=== PATIENT | male | born 1980 | race Two or more races ===

== ENCOUNTER 2022-03-13 12:04 | Emergency (ER) | payer BC, OTHER ==
[~2022-03-13] VITALS: Ht 167.6 cm; Wt 78.0 kg
[2022-03-13 13:04] LABS: Basophils # (auto) 0 10 ^3/uL (0-0.2); Eosinophils # (auto) 0.2 10 ^3/uL (0-0.8)
[2022-03-13 13:06] LABS: Basophils % (auto) 0.4 % (0.0-2.0); Eosinophils % (auto) 2.5 % (0.0-7.0); Hematocrit 52.7 % (41.0-53.0); Lymphocytes % (auto) 28.5 % (10.0-50.0); Mean Corpuscular Hemoglobin 31.7 pg (28.0-32.0); Mean Corpuscular Hgb Conc. 34.2 g/dL (32.0-36.0); Mean Corpuscular Volume 92.8 fL (80.0-100.0); Monocytes # (auto) 0.4 10 ^3/uL (0-1.3); Monocytes % (auto) 6.4 % (0.0-12.0); Neutrophils # (auto) 4.3 10 ^3/uL (1.6-8.6); Neutrophils % (auto) 62.2 % (37.0-80.0); Nucleated Red Blood Cells % 0.4 %; Red Blood Cells 5.67 10^6/uL (4.5-5.90); Red Cell Distribution Width 13.8 % (11.8-14.3); White Blood Cell 6.9 10^3/uL (4.4-10.8)
[2022-03-13 13:12] LABS: Partial Thromboplastin Time 26.9 sec (24.6-33.4)
[2022-03-13 13:15] LABS: Albumin 3.9 g/dL (3.4-5.0); BUN/Creatinine Ratio 17.6; Calcium 8.9 mg/dL (8.5-10.1); Magnesium 2.2 mg/dL (1.6-2.6)
[2022-03-13 13:18] LABS: Bilirubin, Total 0.6 mg/dL (0.2-1.0); Total Protein 7.3 g/dL (6.4-8.2)
[2022-03-13 13:37] VITALS: BP 144/94
[2022-03-13] MEDS ORDERED: SODIUM CHLORIDE 0.9% 1,000 ML IV ONE (17:15)
[2022-03-13 17:57] LABS: Magnesium 2.5 mg/dL (1.6-2.6)
[2022-03-13] MEDS ORDERED: OMEP-263 PO (18:23)
[2022-03-13] MEDS ORDERED: METO-281 PO (18:23)
[2022-03-13] MEDS ORDERED: TRAM50TA2 PO (18:24)
== END 2022-03-13 19:32 | disposition home or self-care (01) ==
LOC: ER 12:04
DX: R10.12 Left upper quadrant pain (principal); R07.89 Other chest pain; I10 Essential (primary) hypertension
CPT/HCPCS: 36415; 71045; 76705; 80053; 83690; 83735; 83880; 84484; 85025; 85610; 85730